=== PATIENT | male | born 1990 | race Hispanic/Latino ===

== ENCOUNTER 2022-06-02 12:47 | Emergency (ER) | payer SELFPAY ==
[2022-06-02] MEDS ORDERED: SODIUM CHLORIDE 0.9% 1000 ML 1,000 ML IV ONE (13:43)
[2022-06-02 14:10] LABS: Basophils % (Auto) 0.2 % (0.0-1.8); Eosinophils % (Auto) 0.1 % (0.0-4.3); Hemoglobin 14.9 gm/dl (11.8-15.2); Lymphocytes # (Auto) 0.9 K/mm3 (1.2-5.4); Lymphocytes % (Auto) 6.1 % (13.4-35.0); Mean Corpuscular HGB Conc 35 % (32-34); Mean Corpuscular Volume 92 fl (84-94); Monocytes # (Auto) 1.1 K/mm3 (0.0-0.8); Monocytes % (Auto) 7.4 % (0.0-7.3); Platelet Count 204 K/mm3 (140-440); Red Blood Count 4.69 M/mm3 (3.65-5.03); Red Cell Distribution Width 13.2 % (13.2-15.2)
[2022-06-02 14:11] LABS: Color,Urine Yellow (Yellow)
[2022-06-02 14:14] LABS: Bacteria,Urine 1+ /HPF (Negative); Hyaline Casts,Urine 37 /LPF; Mucus,Urine 1+ /HPF
[2022-06-02 14:20] LABS: Amphetamine Screen,Urine Negative; Benzodiazepines Screen,Urine Negative; Cannabinoid Screen,Urine Negative; Cocaine Screen,Urine Negative; Methadone Screen,Urine Negative; Opiate Screen,Urine Negative
[2022-06-02 14:27] LABS: Alanine Aminotransferase 110 units/L (7-56); Albumin 4.4 g/dL (3.9-5); BUN/Creatinine Ratio 25; Blood Urea Nitrogen 25 mg/dL (9-20); Calcium 8.7 mg/dL (8.4-10.2); Hemolysis Index 6
[2022-06-02 15:01] VITALS: BP 125/71
[2022-06-02 15:27] LABS: INR 0.87 (0.87-1.13)
--- NOTE | 2022-06-02 15:42 | Emergency Department Report ---
ED General Adult HPI - General Chief complaint: Overdose Stated complaint: OVERDOSE PUI?: No Time Seen by Provider: 06/02/22 13:42 Source: EMS Mode of arrival: Stretcher Limitations: No Limitations - History of Present Illness Initial comments: pt found on the side of the road unresponsive, given 2 mg narcan. 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, states "i thought it was a percocet that someone gave me" pt admitted to snorting pill -: hour(s) Severity scale (0 -10): 0 Associated Symptoms: denies: denies other symptoms, confusion, chest pain, co ugh, diaphoresis Treatments Prior to Arrival: none - Related Data Allergies Allergy/AdvReac Type Severity Reaction Status Date / Time naproxen Allergy Hives Verified 06/02/22 13:36 ED Review of Systems ROS: Stated complaint: OVERDOSE Other details as noted in HPI Constitutional: denies: chills, fever Eyes: denies: eye pain, eye discharge, vision change ENT: denies: ear pain, throat pain Respiratory: denies: cough, shortness of breath, wheezing Cardiovascular: denies: chest pain, palpitations Endocrine: no symptoms reported Gastrointestinal: denies: abdominal pain, nausea, diarrhea Genitourinary: denies: urgency, dysuria Musculoskeletal: denies: back pain, joint swelling, arthralgia Skin: denies: rash, lesions Neurological: denies: headache, weakness, paresthesias Psychiatric: denies: anxiety, depression Hematological/Lymphatic: denies: easy bleeding, easy bruising ED Past Medical Hx - Past Medical History Previous Medical History?: Yes Additional medical history: drug abuse ED Physical Exam - General Limitations: No Limitations General appearance: alert, in no apparent distress - Head Head exam: Present: atraumatic, normocephalic - Eye Eye exam: Present: normal appearance - ENT ENT exam: Present: mucous membranes moist - Neck Neck exam: Present: normal inspection - Respiratory Respiratory exam: Present: normal lung sounds bilaterally. Absent: respiratory distress - Cardiovascular Cardiovascular Exam: Present: regular rate, normal rhythm. Absent: systolic murmur, diastolic murmur, rubs, gallop - GI/Abdominal GI/Abdominal exam: Present: soft, normal bowel sounds - Rectal Rectal exam: Present: deferred - Extremities Exam Extremities exam: Present: normal inspection - Back Exam Back exam: Present: normal inspection - Neurological Exam Neurological exam: Present: alert, oriented X3 - Psychiatric Psychiatric exam: Present: normal affect, normal mood - Skin Skin exam: Present: warm, dry, intact, normal color. Absent: rash ED Course Vital Signs 06/02/22 06/02/22 06/02/22 13:31 13:46 14:59 Temperature 99.1 F 98.4 F Pulse Rate 110 H 107 H 72 Respiratory 16 15 12 Rate Blood Pressure 137/84 148/92 125/71 [Left] O2 Sat by Pulse 97 95 100 Oximetry ED Medical Decision Making - Lab Data Result diagrams: 06/02/22 13:54 06/02/22 13:54 - EKG Data -: EKG Interpreted by Tn EKG shows normal: sinus rhythm Rate: normal - EKG Data Interpretation: no acute changes - Medical Decision Making work up showed negative UDS , asa slightly up , refused to stay no si or hi awake and alert and vss Critical care attestation.: If time is entered above; I have spent that time in minutes in the direct care of this critically ill patient, excluding procedure time. ED Disposition Clinical Impression: Accidental drug ingestion Disposition: 07 LEFT AGAINST MEDICAL ADVICE Is pt being admited?: No Does the pt Need Aspirin: No Condition: Stable Instructions: Accidental Drug Poisoning, Adult
--- NOTE | 2022-06-03 10:23 | Electrocardiograph Report ---
[facility] Test Date: 2022-06-02 Test Time: 13:51:20 Pat Name: MO SMITH Department: Room: Gender: M Home Care Coordinator: LARUI : 1990 Requested By: KIMBERLYN CREWS Order Number: [id number] Reading MD: Cesar eVlasquez Measurements Intervals [place] Rate: 89 P: 74 MI: 147 QRS: 8 QRSD: 104 T: 32 QT: 372 QTc: 454 Interpretive Statements Sinus rhythm No previous ECG available for comparison Electronically Signed On 06-03-2022 10:23:19 EDT by Cesar Velasquez
== END 2022-06-02 16:00 | disposition left against medical advice (07) ==
LOC: ED 12:47
DX: T40.1X1A Poisoning by heroin, accidental (unintentional), initial encounter (principal); Y92.89 Other specified places as the place of occurrence of the external cause; Z88.8 Allergy status to other drugs, medicaments and biological substances
CPT/HCPCS: 36415; 80053; 80307; 81001; 82140; 82550; 84484; 85025; 85610; 93005; 96360; 99284; J7030; 80320; G0480